=== PATIENT | female | born 1955 | race Two or more races ===

== ENCOUNTER → 2017-05-06 | Outpatient (CLI) | payer OTHER ==
--- NOTE | 2017-05-06 10:08 | RAD ---
DATE: 05/06/2017 EXAM: DIGITAL SCREEN BILAT W/CAD HISTORY: Routine screening COMPARISON: 06/25/2015 This study was interpreted with the benefit of Computerized Aided Detection (CAD). The breast parenchyma shows scattered fibroglandular densities. Breast parenchyma level B. FINDINGS: The fibroglandular pattern is mildly asymmetric with increased density in the left breast compared to the right. This is unchanged. No new or enlarging breast densities are seen. Benign type calcification is noted on the left. No suspicious microcalcifications have developed. Benign-appearing left axillary lymph nodes are unchanged. IMPRESSION: Stable mammograms without evidence of malignancy. BI-RADS CATEGORY: 2 BENIGN FINDING(S) RECOMMENDED FOLLOW-UP: 12M 12 MONTH FOLLOW-UP PQRS compliance statement: Patient information was entered into a reminder system with a target due date for the next mammogram. Mammography is a sensitive method for finding small breast cancers, but it does not detect them all and is not a substitute for careful clinical examination. A negative mammogram does not negate a clinically suspicious finding and should not result in delay in biopsying a clinically suspicious abnormality. "Our facility is accredited by the [employer] Mammography [employer]."
--- NOTE | 2017-05-06 10:24 | RAD ---
Abdominal ultrasound, 05/06/2017: History: Abdominal pain, nausea, elevated liver function test The gallbladder is within normal limits in size. There is no sonographic evidence of cholelithiasis. The gallbladder dubon are not thickened. The common hepatic duct is of normal caliber. The liver demonstrates diffusely increased echogenicity, most commonly due to fatty change. It measures 19 cm in craniocaudad extent at the level of the right lobe. No hepatic mass is identified. The spleen is of normal size. Much of the pancreas was obscured by overlying bowel. No renal abnormality is detected. The upper abdominal aorta and inferior vena cava are unremarkable. The distal abdominal aorta was obscured by overlying bowel. No free fluid is evident in the abdomen. IMPRESSION: 1. Mild hepatomegaly with increased hepatic echogenicity compatible with fatty change. 2. No gallbladder abnormality is detected.
== END | disposition home or self-care (01) ==
LOC: US 08:44
PROVIDERS: ATTEND Family Medicine
DX: Z12.31 Encounter for screening mammogram for malignant neoplasm of breast (principal); I25.10 Atherosclerotic heart disease of native coronary artery without angina pectoris; R11.0 Nausea; R10.9 Unspecified abdominal pain; R79.89 Other specified abnormal findings of blood chemistry; R16.0 Hepatomegaly, not elsewhere classified
CPT/HCPCS: 76700; G0202; 77067

== ENCOUNTER → 2018-08-08 | Outpatient (CLI) | payer OTHER ==
--- NOTE | 2018-08-08 14:50 | RAD ---
DATE: 08/08/2018 EXAM: DIGITAL SCREEN BILAT W/CAD HISTORY: Routine screening COMPARISON: 05/06/2017 This study was interpreted with the benefit of Computerized Aided Detection (CAD). Breast Density: SCATTERED The breast parenchyma shows scattered fibroglandular densities. Breast parenchyma level B. FINDINGS: No new or enlarging breast densities are seen. No suspicious microcalcifications are evident. Unchanged benign-appearing lymph nodes are again noted in the axillary regions. IMPRESSION: Stable mammograms without evidence of malignancy. BI-RADS CATEGORY: 2 BENIGN FINDING(S) RECOMMENDED FOLLOW-UP: 12M 12 MONTH FOLLOW-UP PQRS compliance statement: Patient information was entered into a reminder system with a target due date for the next mammogram. Mammography is a sensitive method for finding small breast cancers, but it does not detect them all and is not a substitute for careful clinical examination. A negative mammogram does not negate a clinically suspicious finding and should not result in delay in biopsying a clinically suspicious abnormality. "Our facility is accredited by the [employer] Mammography [employer]."
== END | disposition home or self-care (01) ==
LOC: MAMMO 09:07
PROVIDERS: ATTEND Family Medicine
DX: Z12.31 Encounter for screening mammogram for malignant neoplasm of breast (principal)
CPT/HCPCS: 77067

== ENCOUNTER → 2018-11-24 | Outpatient (CLI) | payer MEDICARE, OTHER ==
--- NOTE | 2018-11-24 09:54 | RAD ---
Abdominal ultrasound without comparison for Branch. TECHNIQUE AND FINDINGS: Real-time grayscale and color Doppler evaluation of the abdominal organs is performed. The pancreatic head is normal in appearance. The body and tail are obscured by overlying bowel gas. The aorta is nonaneurysmal. The IVC is patent. The liver is normal in size and contour, with no intrahepatic or extrahepatic biliary ductal dilatation. The liver measures 17.1 cm. Increased echogenicity diffusely suggesting diffuse fatty infiltration. The gallbladder is partially fluid distended and grossly unremarkable, with no shadowing stones or sludge, no cholecystic fluid, and no gallbladder wall thickening. No sonographic Calabrese sign was elicited. The common bile duct measures 3 mm in diameter. The right kidney measures 10.8 x 5.9 x 4.1 cm and the left measures 9.7 x 4.5 x 5.5 cm. There is nonshadowing echogenic focus within the cortex of the superior pole the right kidney that may represent a small stone which is nonobstructing. There is scarring of the upper pole of the left kidney. Spleen is not well demonstrated due to overlying bowel gas. No ascites is seen. IMPRESSION: 1. Hepatic steatosis. 2. No evidence of acute cholecystitis. 3. Possible nonobstructing small right upper pole calculus. 4. Scarring of the left upper pole renal cortex. Electronically signed by: Samuel Galvan MD (11/24/2018 9:51 AM) [id number]
== END | disposition home or self-care (01) ==
LOC: US 08:45
PROVIDERS: ATTEND Family Medicine
DX: K76.0 Fatty (change of) liver, not elsewhere classified (principal); N28.89 Other specified disorders of kidney and ureter
CPT/HCPCS: 76700

== ENCOUNTER → 2019-10-04 | Outpatient (CLI) | payer OTHER ==
--- NOTE | 2019-10-04 11:46 | RAD ---
History: Routine screening. Technique: Bilateral digital mammographic routine views were obtained with CAD - computer aided detection. Comparison: 08/08/2018, 05/06/2017.. Findings: Breast Tissue Density B :The breast tissue is composed of mixed fatty and fibroglandular tissue. There are no suspicious masses, microcalcifications or areas of architectural distortion. Impression: Negative mammogram. BI-RADS Category 1: Negative. Normal interval followup. A mammogram does not have 100% sensitivity and therefore a negative imaging study should not delay further work up of a suspicious abnormality. The patient will receive a letter with the results in the mail. Patient information is entered into the reminder system with a target due date for the next screening mammogram. The patient will receive a reminder. "Our facility is accredited by the [employer] Mammography [employer]." BI-RADS 1 -- negative findings (within normal)
== END ==
LOC: MAMMO 08:37
PROVIDERS: ATTEND Family Medicine
DX: Z12.31 Encounter for screening mammogram for malignant neoplasm of breast (principal)
CPT/HCPCS: 77067

== ENCOUNTER → 2021-03-06 | Outpatient (CLI) | payer BC, OTHER ==
--- NOTE | 2021-03-06 09:02 | RAD ---
EXAM: Bilateral digital screening mammogram with tomosynthesis. HISTORY: 65-year-old female presents for screening mammography. TECHNIQUE: Full-field digital craniocaudal and mediolateral oblique 2D and 3D tomosynthesis images of both breasts are obtained for evaluation. Computer aided detection was applied. COMPARISON: 10/04/2019 BREAST PARENCHYMAL DENSITY: Level B - Scattered fibroglandular densities. FINDINGS: There is no new suspicious mass, microcalcification or region of architectural distortion. IMPRESSION: BI-RADS Category 2: Benign finding(s). RECOMMENDATION: Annual mammography is recommended. If your mammogram demonstrates that you have dense breast tissue, which could hide abnormalities, and if you have other risk factors for breast cancer that have been identified, you might benefit from s upplemental screening tests that may be suggested by your ordering physician. Dense breast tissue, i n and of itself, is a relatively common condition. This information is not provided to cause undue c oncern, but rather to raise your awareness and to promote discussion with your physician regarding th e presence of other risk factors, in addition to dense breast tissue. A report of your mammography re sults will be sent to you and your physician. You should contact your physician if you have any ques tions or concerns regarding this report. Mammography is a sensitive method for finding small breast cancers, but it does not detect them all a nd is not a substitute for careful clinical examination. A negative mammogram does not negate a clin ically suspicious finding and should not result in delay in biopsying a clinically suspicious abnorma lity. PQRS compliance statement - Patient information was entered into a reminder system with a target due date for the next mammogram. "Our facility is accredited by the [employer] Mammography [employer]." Electronically signed by: Gin Saez MD (03/06/2021 8:59 AM) [id number]
== END ==
LOC: MAMMO 08:09
PROVIDERS: ATTEND Family Medicine
DX: Z12.31 Encounter for screening mammogram for malignant neoplasm of breast (principal)
CPT/HCPCS: 77063; 77067